=== PATIENT | male | born 1975 | race Caucasian/White ===

== ENCOUNTER 2018-07-31 11:38 | Emergency (ER) | payer OTHER ==
[~2018-07-31] VITALS: Ht 167.6 cm; Wt 79.3 kg
[2018-07-31] MEDS ORDERED: MELA3TAB49 PO (12:34)
[2018-07-31] MEDS ORDERED: RIBO400T PO (12:34)
[2018-07-31] MEDS ORDERED: HYDR-643 PO (12:34)
[2018-07-31] MEDS ORDERED: PRAZ2CAP PO (12:34)
[2018-07-31] MEDS ORDERED: BUPR-321 PO (12:34)
[2018-07-31] MEDS ORDERED: SERT-138 PO (12:34)
[2018-07-31] MEDS ORDERED: TIZA4CAP PO (12:34)
[2018-07-31] MEDS ORDERED: ROPI2TAB PO (12:34)
[2018-07-31] MEDS ORDERED: TETRACAINE 0.5% OPHTH SOLN 4ML OS ONE (13:30)
[2018-07-31] MEDS ORDERED: FLUORESCEIN OPHTH 1 MG STRIP OS ONE (13:30)
[2018-07-31] MEDS ORDERED: LUBR0.5D OP (14:27)
[2018-07-31] MEDS ORDERED: MOXI0.5S OS (14:27)
[2018-07-31 14:39] VITALS: BP 156/71
== END 2018-07-31 14:40 | disposition home or self-care (01) ==
LOC: M ED 11:38
DX: T15.02XA Foreign body in cornea, left eye, initial encounter (principal); X58.XXXA Exposure to other specified factors, initial encounter; Y92.099 Unspecified place in other non-institutional residence as the place of occurrence of the external cause; Y93.89 Activity, other specified; Y99.9 Unspecified external cause status; Z79.899 Other long term (current) drug therapy; Z88.2 Allergy status to sulfonamides

== ENCOUNTER → 2019-07-22 | Outpatient (REF) | payer OTHER ==
[~2019-07-22] MED LIST: BUPR-321 PO; HYDR-643 PO; LUBR0.5D OP; MELA3TAB49 PO; MOXI0.5S OS; PRAZ2CAP PO; RIBO400T PO; ROPI2TAB3 PO; SERT-138 PO; TIZA4CAP PO
[2019-07-22 15:24] LABS: INFLUENZA A AMPLIFICATION POSITIVE (NEGATIVE); INFLUENZA B AMPLIFICATION NEGATIVE (NEGATIVE)
== END ==
LOC: M LAB REF 14:23
PROVIDERS: ATTEND Physician Assistant Medical
DX: J11.1 Influenza due to unidentified influenza virus with other respiratory manifestations (principal)

== ENCOUNTER → 2019-08-04 | Outpatient (CLI) | payer OTHER | LOC: M LABSMTC 11:08 | PROVIDERS: ATTEND Family Medicine | DX: Z20.828 Contact with and (suspected) exposure to other viral communicable diseases (principal) ==

== ENCOUNTER 2020-11-17 12:41 | Emergency (ER) | payer OTHER ==
[~2020-11-17] VITALS: Ht 167.6 cm; Wt 81.8 kg
[2020-11-17 12:41] VITALS: BP 139/87
[~2020-11-17 12:41] MED LIST changes: -BUPR-321 PO; +BUPR100T10 PO
[2020-11-17] MEDS ORDERED: TETRACAINE 0.5% OPHTH SOLN 4ML OU ONE (14:25)
[2020-11-17] MEDS ORDERED: FLUORESCEIN OPHTH 1 MG STRIP OU ONE (14:25)
[2020-11-17] MEDS ORDERED: PROP10TA56 PO ×2 (15:25)
[2020-11-17] MEDS ORDERED: ERYT5OIN25 OP (17:24)
== END 2020-11-17 17:33 | disposition home or self-care (01) ==
LOC: M ED 12:41
DX: S05.01XA Injury of conjunctiva and corneal abrasion without foreign body, right eye, initial encounter (principal); S05.02XA Injury of conjunctiva and corneal abrasion without foreign body, left eye, initial encounter; X58.XXXA Exposure to other specified factors, initial encounter; Y92.89 Other specified places as the place of occurrence of the external cause; H11.423 Conjunctival edema, bilateral; I10 Essential (primary) hypertension; F33.9 Major depressive disorder, recurrent, unspecified; F41.9 Anxiety disorder, unspecified; G25.81 Restless legs syndrome; Z79.899 Other long term (current) drug therapy; Z88.1 Allergy status to other antibiotic agents; Z88.2 Allergy status to sulfonamides

== ENCOUNTER → 2021-03-23 | Outpatient (CLI) | payer OTHER ==
[~2021-03-23] MED LIST changes: +ERYT5OIN25 OP; +PROP10TA56 PO
--- NOTE | 2021-03-23 09:44 | REPVR ---
PROCEDURE INFORMATION: Exam: MR Cervical Spine Without Contrast Exam date and time: 03/23/2021 8:11 AM Age: 45 years old Clinical indication: Neck pain; Additional info: Cervicalgia HTN mirgraine HTN lbp TECHNIQUE: Imaging protocol: Multiplanar magnetic resonance images of the cervical spine without contrast. COMPARISON: No relevant prior studies available. FINDINGS: Limitations: There is motion artifact partially degrading examination. Vertebrae: Straightening of lordosis may be positional or related to muscular spasm. Correlate clinically. There is minimal retrolisthesis C5 on C6. Vertebral body heights are maintained. No acute fracture. No marrow edema or abnormal marrow signal. Spinal cord: Spinal cord is normal in caliber and shows normal signal. No evidence of spinal cord compression. Discs/Spinal canal/Neural foramina: There are minimal cervical disc osteophyte complexes from C3-C4 through C6-C7. There are uncinate and facet osteophytes at C5-C6 and C6-C7. There is no spinal stenosis or cord impingement. There is likely neural foraminal narrowing at C5-C6 and C6-C7, difficult to definitively quantitate due to motion but not severe. C4-C5 shows a tiny central protrusion and annular fissure. Vasculature: Expected flow voids in the vertebral arteries. Soft tissues: Unremarkable IMPRESSION: Motion limited examination. No spinal stenosis or cord impingement prox. Probable neural foraminal narrowing at C5-C6 and C6-C7. Electronically signed by: Sofya Guo On 03/23/2021 09:44:21 AM
--- NOTE | 2021-03-23 09:48 | REPVR ---
PROCEDURE INFORMATION: Exam: MR Head Without Contrast Exam date and time: 03/23/2021 8:11 AM Age: 45 years old Clinical indication: Pain; Headache; Cluster; Additional info: Cervicalgia HTN migraine HTN lbp TECHNIQUE: Imaging protocol: MR of the head without contrast. COMPARISON: No relevant prior studies available. FINDINGS: Brain: There is scattered T2 and FLAIR hyperintense small areas in cerebral white matter and left basal ganglia and small areas in posterior aspect bilateral yung. Differential diagnosis includes microvascular disease, cerebral autosomal dominant arteriopathy with subcortical infarcts (CADASIL), vasculitis, [employer] lupus, sequela of migraine headaches, associated with chronic hypertension, associated with hypercoagulable states, demyelination (not characteristic distribution), Lyme disease, or nonspecific gliosis. Diffusion images are normal. No evidence of acute infarction. No evidence of acute intracranial hemorrhage. No extra-axial fluid collections. Ventricles and cerebrospinal fluid spaces are normal in size and configuration for the patient's age. There is no evidence of mass-effect or midline shift. Flow voids of the [place] and major cerebral vascular structures appear intact. Craniocervical junction appears unremarkable, with normal position of cerebellar tonsils and no evidence of Chiari I malformation. Cerebral ventricles: Normal. No ventriculomegaly. Bones/joints: Unremarkable as visualized. Paranasal sinuses: Normal as visualized. No acute sinusitis. Mastoid air cells: No significant mastoid effusion. Orbital cavity: Unremarkable. Soft tissues: Unremarkable as visualized. IMPRESSION: 1. Nonspecific predominantly white matter changes as described. 2. No acute infarct or hemorrhage. No evidence of mass producing lesion. Electronically signed by: Sofya Guo On 03/23/2021 09:48:14 AM
--- NOTE | 2021-03-23 09:53 | REPVR ---
PROCEDURE INFORMATION: Exam: MR Lumbar Spine Without Contrast Exam date and time: 03/23/2021 8:40 AM Age: 45 years old Clinical indication: Low back pain; Additional info: Cervicalgia HTN mirgraine HTN lbp TECHNIQUE: Imaging protocol: Multiplanar magnetic resonance images of the lumbar spine without intravenous contrast. COMPARISON: No relevant prior studies available. FINDINGS: Limitations: There is motion artifact partially degrading examination. Study is felt to be diagnostic however. Vertebrae: No scoliosis. Partial straightening of lordosis. Vertebral body heights normal. There is disc desiccation and [id number] posterior disc height loss at L5-S1. Hemangiomas at L2 and S2. Vertebral body marrow signal is otherwise unremarkable. Spinal cord: Conus terminates at T12-L1 and appears normal in signal intensity without intrinsic or extrinsic lesion. Small filum lipoma at L2-L3 level. L1-L2: There is no significant posterior disc bulge or protrusion. There is no significant spinal stenosis or neural foraminal narrowing. L2-L3: There is no significant posterior disc bulge or protrusion. There is no significant spinal stenosis or neural foraminal narrowing. L3-L4: There is no significant posterior disc bulge or protrusion. There is no significant spinal stenosis or neural foraminal narrowing. L4-L5: There is mild disc bulge without protrusion. There is no significant spinal stenosis or neural foraminal narrowing. L5-S1: There is mild generalized disc bulge. There is right paracentral approximately 3 mm protrusion. There is no impingement or displacement S1 nerve root. There is no significant spinal stenosis. There is mild bilateral neural foraminal narrowing, without nerve root impingement or displacement. Soft tissues: Unremarkable. Kidneys and ureters: Note is made of retroaortic left renal vein. No aortic aneurysm. IMPRESSION: Mild degenerative changes without evidence of nerve root impingement. Electronically signed by: Sofya Guo On 03/23/2021 09:52:59 AM
== END ==
LOC: M RAD 07:00
PROVIDERS: ATTEND Family Medicine
DX: M54.2 Cervicalgia (principal); I10 Essential (primary) hypertension; M54.50 Low back pain, unspecified; G43.909 Migraine, unspecified, not intractable, without status migrainosus

== ENCOUNTER 2021-06-26 16:15 | Emergency (ER) | payer OTHER ==
[~2021-06-26] VITALS: Ht 167.6 cm; Wt 84.8 kg
[~2021-06-26 16:15] MED LIST changes: +BUPR-364 PO; -BUPR100T10 PO
[2021-06-26] MEDS ORDERED: NS 1,000 ML IV ONE (17:35)
[2021-06-26 17:53] LABS: BASO # 0.1 10^3/uL (0.0-0.2); BASO % 0.9 % (0.0-1.0); EOS # 0.3 10^3/uL (0.0-0.5); EOS % 3.1 % (0.0-3.0); HEMATOCRIT 49.9 % (42.0-52.0); HEMOGLOBIN 16.7 g/dl (13.5-17.5); LYMPH # 2.1 10^3/uL (1.5-5.0); LYMPH % 21.1 % (24.0-44.0); MEAN CORPUSCULAR HEMOGLOBIN 27.2 pg (27.0-33.0); MEAN CORPUSCULAR HGB CONC 33.5 g/dl (32.0-36.5); MEAN CORPUSCULAR VOLUME 81.3 fl (80.0-96.0); MONO # 1.1 10^3/uL (0.0-0.8); MONO % 11.6 % (2.0-8.0); NEUTROPHILS # 6.2 10^3/uL (1.5-8.5); PLATELET COUNT, AUTOMATED 324 10^3/uL (150-450); RED BLOOD COUNT 6.14 10^6/uL (4.30-6.10); WHITE BLOOD COUNT 9.8 10^3/uL (4.0-10.0)
[2021-06-26 18:17] LABS: ALT/SGPT 45 U/L (12-78); BILIRUBIN,DIRECT 0.2 MG/DL (0.0-0.2); BILIRUBIN,TOTAL 0.6 MG/DL (0.2-1.0); BLOOD UREA NITROGEN 18 MG/DL (7-18); CALCIUM LEVEL 9.9 MG/DL (8.5-10.1); CARBON DIOXIDE LEVEL 28 MEQ/L (21-32); CHLORIDE LEVEL 103 MEQ/L (98-107); CREATININE FOR GFR 0.97 MG/DL (0.70-1.30); GLOMERULAR FILTRATION RATE > 60.0 (>60); GLUCOSE, FASTING 92 MG/DL (70-100); LIPASE 155 U/L (73-393); POTASSIUM SERUM 4.5 MEQ/L (3.5-5.1); SODIUM LEVEL 138 MEQ/L (136-145); TOTAL PROTEIN 8.2 GM/DL (6.4-8.2)
[2021-06-26] MEDS ORDERED: ISOVUE-370 76% 100ML VIAL As Ordered ONE (18:20)
[2021-06-26 19:30] VITALS: BP 142/95
== END 2021-06-26 21:04 | disposition home or self-care (01) ==
LOC: M ED 16:15
DX: R19.7 Diarrhea, unspecified (principal); K76.0 Fatty (change of) liver, not elsewhere classified; Z88.2 Allergy status to sulfonamides; Z79.899 Other long term (current) drug therapy
CPT/HCPCS: 74177; 80048; 80076; 81001; 83690; 85025; 87505; 96360; 96361; 99284; Q9967

== ENCOUNTER 2021-06-30 07:24 | Emergency (ER) | payer OTHER ==
[~2021-06-30] VITALS: Ht 167.6 cm; Wt 84.2 kg
[2021-06-30] MEDS ORDERED: VANCOMYCIN ORAL SOL 250MG/5ML ORAL SYRINGE PO STA (08:20)
[2021-06-30] MEDS ORDERED: PROMETHAZINE 25MG/ML 1ML VIAL IV ONE (08:20)
[2021-06-30] MEDS ORDERED: NS 1,000 ML IV ONE (08:25)
[2021-06-30 09:33] LABS: BASO # 0.1 10^3/uL (0.0-0.2); BASO % 0.8 % (0.0-1.0); EOS # 0.3 10^3/uL (0.0-0.5); EOS % 2.2 % (0.0-3.0); HEMOGLOBIN 15.7 g/dl (13.5-17.5); LYMPH # 1.6 10^3/uL (1.5-5.0); LYMPH % 13.9 % (24.0-44.0); MEAN CORPUSCULAR HEMOGLOBIN 26.8 pg (27.0-33.0); MEAN CORPUSCULAR HGB CONC 33.4 g/dl (32.0-36.5); MEAN CORPUSCULAR VOLUME 80.2 fl (80.0-96.0); MONO # 1.1 10^3/uL (0.0-0.8); MONO % 9.7 % (2.0-8.0); NEUTROPHILS # 8.4 10^3/uL (1.5-8.5); PLATELET COUNT, AUTOMATED 291 10^3/uL (150-450); RED BLOOD COUNT 5.86 10^6/uL (4.30-6.10); WHITE BLOOD COUNT 11.5 10^3/uL (4.0-10.0)
[2021-06-30 10:00] LABS: BLOOD UREA NITROGEN 13 MG/DL (7-18); CALCIUM LEVEL 9.5 MG/DL (8.5-10.1); CARBON DIOXIDE LEVEL 25 MEQ/L (21-32); CHLORIDE LEVEL 106 MEQ/L (98-107); CREATININE FOR GFR 0.96 MG/DL (0.70-1.30); GLOMERULAR FILTRATION RATE > 60.0 (>60); GLUCOSE, FASTING 101 MG/DL (70-100); POTASSIUM SERUM 4.5 MEQ/L (3.5-5.1); SODIUM LEVEL 138 MEQ/L (136-145)
[2021-06-30] MEDS ORDERED: PROM25TA12 PO (10:23)
[2021-06-30] MEDS ORDERED: VANC125C3 PO (10:23)
[2021-06-30 10:42] VITALS: BP 125/75
== END 2021-06-30 10:53 | disposition home or self-care (01) ==
LOC: M ED 07:24
DX: A04.72 Enterocolitis due to Clostridium difficile, not specified as recurrent (principal); R19.7 Diarrhea, unspecified; Z88.2 Allergy status to sulfonamides; Z79.899 Other long term (current) drug therapy
CPT/HCPCS: 80048; 85025; 96361; 96374; 99284; J2550

== ENCOUNTER 2021-07-07 10:37 | Emergency (ER) | payer OTHER ==
[~2021-07-07] VITALS: Ht 167.6 cm; Wt 81.2 kg
[~2021-07-07 10:37] MED LIST changes: +PROM25TA12 PO; +VANC125C3 PO
[2021-07-07 10:38] VITALS: BP 149/90
== END 2021-07-07 11:45 | disposition left against medical advice (07) ==
LOC: M ED 10:37
DX: Z53.21 Procedure and treatment not carried out due to patient leaving prior to being seen by health care provider (principal)

== ENCOUNTER → 2021-07-30 | Outpatient (CLI) | payer OTHER | LOC: M PLAIMG 10:14 | PROVIDERS: ATTEND Family Medicine | DX: R51.9 Headache, unspecified (principal); M54.2 Cervicalgia; M54.50 Low back pain, unspecified ==

== ENCOUNTER 2022-01-07 16:07 | Emergency (ER) | payer OTHER ==
[~2022-01-07] VITALS: Ht 167.6 cm; Wt 86.1 kg
[2022-01-07 19:20] LABS: BASO # 0.1 10^3/uL (0.0-0.2); BASO % 1.3 % (0.0-1.0); EOS # 0.5 10^3/uL (0.0-0.5); EOS % 4.7 % (0.0-3.0); HEMATOCRIT 47.5 % (42.0-52.0); HEMOGLOBIN 15.9 g/dl (13.5-17.5); LYMPH # 2.8 10^3/uL (1.5-5.0); LYMPH % 25.3 % (24.0-44.0); MEAN CORPUSCULAR HEMOGLOBIN 27.3 pg (27.0-33.0); MEAN CORPUSCULAR HGB CONC 33.5 g/dl (32.0-36.5); MEAN CORPUSCULAR VOLUME 81.5 fl (80.0-96.0); MONO # 1.2 10^3/uL (0.0-0.8); MONO % 10.7 % (2.0-8.0); NEUTROPHILS # 6.3 10^3/uL (1.5-8.5); NEUTROPHILS % 57.3 % (36.0-66.0); PLATELET COUNT, AUTOMATED 315 10^3/uL (150-450); RED BLOOD COUNT 5.83 10^6/uL (4.30-6.10)
[2022-01-07 19:58] LABS: ALT/SGPT 52 U/L (12-78); BILIRUBIN,DIRECT 0.3 MG/DL (0.0-0.2); BILIRUBIN,TOTAL 0.5 MG/DL (0.2-1.0); BLOOD UREA NITROGEN 10 MG/DL (7-18); CALCIUM LEVEL 9.9 MG/DL (8.5-10.1); CARBON DIOXIDE LEVEL 27 MEQ/L (21-32); CHLORIDE LEVEL 106 MEQ/L (98-107); CREATININE FOR GFR 0.82 MG/DL (0.70-1.30); GLOMERULAR FILTRATION RATE > 60.0 (>60); GLUCOSE, FASTING 80 MG/DL (70-100); LIPASE 142 U/L (73-393); POTASSIUM SERUM 4.1 MEQ/L (3.5-5.1); SODIUM LEVEL 138 MEQ/L (136-145); TOTAL PROTEIN 8.3 GM/DL (6.4-8.2)
[2022-01-07 20:07] VITALS: BP 160/110
[2022-01-07] MEDS ORDERED: FIDAXOMICIN 200 MG TAB (DIFICID) PO SCH (21:00)
[2022-01-07] MEDS ORDERED: DIFI200T PO (21:48)
== END 2022-01-07 22:14 | disposition home or self-care (01) ==
LOC: M ED 16:07
DX: A04.71 Enterocolitis due to Clostridium difficile, recurrent (principal); Z88.1 Allergy status to other antibiotic agents; Z88.2 Allergy status to sulfonamides

== ENCOUNTER → 2022-01-21 | Outpatient (REF) | payer OTHER ==
[~2022-01-21] MED LIST changes: +DIFI200T PO
[2022-01-22 16:41] LABS: CLOSTRIDIUM DIFFICILE PCR NEGATIVE (NEGATIVE)
== END ==
LOC: M LAB REF 14:54
PROVIDERS: ATTEND Internal Medicine
DX: A04.72 Enterocolitis due to Clostridium difficile, not specified as recurrent (principal)

== ENCOUNTER 2022-07-20 15:30 | Outpatient (CLI) | payer OTHER ==
[~2022-07-20] VITALS: Ht 167.6 cm; Wt 85.0 kg
[2022-07-20 15:47] VITALS: BP 140/100
[2022-07-20] MEDS ORDERED: BEZLOTOXUMAB 850 MG in NS 100 ML IV ONE (16:00)
[2022-07-20 16:50] VITALS: BP 153/92
== END 2022-07-20 16:50 | disposition home or self-care (01) ==
LOC: M INFU 15:30
PROVIDERS: ATTEND Internal Medicine Gastroenterology
DX: A04.71 Enterocolitis due to Clostridium difficile, recurrent (principal); Z88.2 Allergy status to sulfonamides
CPT/HCPCS: 96365; J0565

== ENCOUNTER → 2022-08-18 | Outpatient (REF) | payer OTHER | LOC: M LAB REF 11:42 | PROVIDERS: ATTEND Internal Medicine Gastroenterology | DX: R19.7 Diarrhea, unspecified (principal) ==

== ENCOUNTER 2022-09-22 12:05 | Day surgery (SDC) | payer OTHER ==
[~2022-09-22] VITALS: Ht 167.6 cm; Wt 80.7 kg
[~2022-09-22 12:05] MED LIST changes: +AMIT10TA7 PO; +FECAL MICROBIOTA TRANSPLANT PREPARATION 35ML BAG XX ONE; +NS 1,000 ML IV ONE; +SERT200C PO
[2022-09-22 15:13] VITALS: BP 130/79
== END 2022-09-22 15:16 | disposition home or self-care (01) ==
LOC: M OPP 12:05
PROVIDERS: ATTEND Internal Medicine Gastroenterology
DX: K64.0 First degree hemorrhoids (principal); K51.00 Ulcerative (chronic) pancolitis without complications; A04.71 Enterocolitis due to Clostridium difficile, recurrent; K52.9 Noninfective gastroenteritis and colitis, unspecified; G47.33 Obstructive sleep apnea (adult) (pediatric); Z87.891 Personal history of nicotine dependence; Z79.01 Long term (current) use of anticoagulants; Z79.1 Long term (current) use of non-steroidal anti-inflammatories (NSAID); Z79.899 Other long term (current) drug therapy; Z88.2 Allergy status to sulfonamides

== ENCOUNTER → 2022-09-27 | Outpatient (REF) | payer OTHER ==
[~2022-09-27] MED LIST changes: -FECAL MICROBIOTA TRANSPLANT PREPARATION 35ML BAG XX ONE; -NS 1,000 ML IV ONE
== END ==
LOC: M LAB REF 17:11
PROVIDERS: ATTEND Internal Medicine Gastroenterology
DX: R19.7 Diarrhea, unspecified (principal)

== ENCOUNTER → 2022-10-13 | Outpatient (REF) | payer OTHER | LOC: M LAB REF 11:43 | PROVIDERS: ATTEND Internal Medicine Gastroenterology | DX: R19.7 Diarrhea, unspecified (principal) ==

== ENCOUNTER 2023-07-16 12:39 | Inpatient (IN) | payer OTHER ==
[~2023-07-16] VITALS: Ht 167.6 cm; Wt 79.0 kg
[~2023-07-16 12:39] MED LIST changes: -ROPI2TAB3 PO; +ROPI2TAB46 PO
[2023-07-16] MEDS ORDERED: MESA1.2T PO (13:19)
[2023-07-16] MEDS: NS 1,000 ML IV ONE (16:17)
[2023-07-16 16:23] LABS: AMORPHOUS SEDIMENT LARGE (NEGATIVE); APPEARANCE, URINE TURBID (CLEAR); BACTERIA, URINE AUTO NEGATIVE (NEGATIVE); BILIRUBIN, URINE AUTO NEGATIVE (NEGATIVE); BLOOD, URINE BLOOD NEGATIVE (NEGATIVE); COLOR, URINE AMBER (YELLOW); GLUCOSE, URINE (UA) AUTO NEGATIVE (NEGATIVE); KETONE, URINE AUTO 1+ mg/dL (NEGATIVE); LEUKOCYTE ESTERASE, URINE AUTO NEGATIVE (NEGATIVE); MUCUS, URINE LARGE (NEGATIVE); NITRITE, URINE AUTO NEGATIVE (NEGATIVE); PROTEIN, URINE AUTO 2+ mg/dL (NEGATIVE); RBC, URINE AUTO 0 /HPF (0-3); SQUAMOUS EPITHELIAL CELL UR AU 0 /HPF (0-6); UROBILINOGEN, URINE AUTO 0.2 mg/dL (0.0-2.0); WBC, URINE AUTO 72 /HPF (0-3)
[2023-07-16 16:26] LABS: BASO # 0.1 10^3/uL (0.0-0.2); BASO % 0.8 % (0.0-1.0); EOS # 0.2 10^3/uL (0.0-0.5); EOS % 1.3 % (0.0-3.0); HEMATOCRIT 46.9 % (42.0-52.0); HEMOGLOBIN 15.9 g/dl (13.5-17.5); LYMPH # 1.6 10^3/uL (1.5-5.0); LYMPH % 10.2 % (24.0-44.0); MEAN CORPUSCULAR HEMOGLOBIN 26.5 pg (27.0-33.0); MEAN CORPUSCULAR HGB CONC 33.9 g/dl (32.0-36.5); MONO # 1.3 10^3/uL (0.0-0.8); MONO % 8.5 % (2.0-8.0); NEUTROPHILS # 12.1 10^3/uL (1.5-8.5); NEUTROPHILS % 78.3 % (36.0-66.0); PLATELET COUNT, AUTOMATED 429 10^3/uL (150-450); RED BLOOD COUNT 6.01 10^6/uL (4.30-6.10); WHITE BLOOD COUNT 15.4 10^3/uL (4.0-10.0)
[2023-07-16] MEDS: GASTROGRAFIN SOLUTION 30ML PO SCH (16:26)
[2023-07-16 16:48] LABS: LIPASE 23 U/L (12-53)
[2023-07-16 16:50] LABS: ALBUMIN 3.8 G/DL (3.2-5.2); ALKALINE PHOSPHATASE 144 U/L (46-116); ALT/SGPT 23 U/L (7.0-40); AST/SGOT 16 U/L (<34); BILIRUBIN,DIRECT 0.4 MG/DL (<0.4); BILIRUBIN,TOTAL 0.5 MG/DL (0.3-1.2); BLOOD UREA NITROGEN 12 MG/DL (9-23); CALCIUM LEVEL 9.5 MG/DL (8.5-10.1); CARBON DIOXIDE LEVEL 23 MMOL/L (20-31); CHLORIDE LEVEL 106 MMOL/L (98-107); CREATININE FOR GFR 0.92 MG/DL (0.70-1.30); GLOMERULAR FILTRATION RATE > 60.0 (>60); GLUCOSE, FASTING 113 MG/DL (60-100); MAGNESIUM LEVEL 2.1 MG/DL (1.8-2.4); POTASSIUM SERUM 4.3 MMOL/L (3.5-5.1); SODIUM LEVEL 138 MMOL/L (136-145); TOTAL PROTEIN 7.8 G/DL (5.7-8.2)
[2023-07-16 17:20] LABS: RSV AMPLIFICATION NEGATIVE (NEGATIVE)
[2023-07-16] MEDS ORDERED: ISOVUE-370 76% 100ML VIAL As Ordered ONE (17:41)
[2023-07-16] MEDS: NS 1,000 ML IV SCH (20:10)
[2023-07-16] MEDS ORDERED: HOME MED LIST COMPLETE! XX SCH (21:00)
[2023-07-16] MEDS: VANCOMYCIN 125MG CAPSULE PO ONE (21:07)
[2023-07-16] MEDS: ACETAMINOPHEN *IV* 1,000 MG in IV 1 EA IV PRN (22:00)
[2023-07-16] MEDS: FIDAXOMICIN 200 MG TAB (DIFICID) PO SCH (23:01)
[2023-07-17] MEDS: methylPREDNISolone 40MG 1ML VIAL IV ONE (04:15)
[2023-07-17] MEDS: LR 1,000 ML IV SCH (08:08)
[2023-07-17] MEDS ORDERED: tiZANidine 4 MG TAB PO PRN (10:50)
[2023-07-17 10:54] LABS: BASO # 0.1 10^3/uL (0.0-0.2); BASO % 0.8 % (0.0-1.0); EOS % 0.1 % (0.0-3.0); HEMATOCRIT 47.9 % (42.0-52.0); HEMOGLOBIN 15.3 g/dl (13.5-17.5); LYMPH # 1.2 10^3/uL (1.5-5.0); LYMPH % 9.3 % (24.0-44.0); MEAN CORPUSCULAR HEMOGLOBIN 25.5 pg (27.0-33.0); MEAN CORPUSCULAR HGB CONC 31.9 g/dl (32.0-36.5); MEAN CORPUSCULAR VOLUME 79.8 fl (80.0-96.0); MONO # 0.2 10^3/uL (0.0-0.8); MONO % 1.8 % (2.0-8.0); NEUTROPHILS # 10.7 10^3/uL (1.5-8.5); NEUTROPHILS % 86.2 % (36.0-66.0); PLATELET COUNT, AUTOMATED 441 10^3/uL (150-450); WHITE BLOOD COUNT 12.4 10^3/uL (4.0-10.0)
[2023-07-17 11:00] LABS: BLOOD UREA NITROGEN 12 MG/DL (9-23); CALCIUM LEVEL 9.1 MG/DL (8.5-10.1); CARBON DIOXIDE LEVEL 24 MMOL/L (20-31); CHLORIDE LEVEL 106 MMOL/L (98-107); CREATININE FOR GFR 0.76 MG/DL (0.70-1.30); GLOMERULAR FILTRATION RATE > 60.0 (>60); GLUCOSE, FASTING 112 MG/DL (60-100); POTASSIUM SERUM 5.1 MMOL/L (3.5-5.1); SODIUM LEVEL 138 MMOL/L (136-145)
[2023-07-17 11:07] LABS: PROCALCITONIN <0.04 ng/ml
[2023-07-17 11:14] LABS: ERYTHROCYTE SEDIMENTATION RATE 59 mm/hr (0-15)
[2023-07-17] MEDS: predniSONE 50 MG TAB PO SCH (11:46)
[2023-07-17 15:00] VITALS: BP 142/96; TEMP 98.1; O2SAT 96
[2023-07-17] MEDS: MESALAMINE 400 MG CAPSULE DELAYED RELEASE (DELZICOL) PO SCH (17:38)
[2023-07-17] MEDS: PROPRANOLOL 10 MG TAB PO SCH (17:39)
[2023-07-17 20:34] VITALS: BP 144/91; TEMP 98.2; O2SAT 97
[2023-07-17] MEDS: HEPARIN SOD (PORCINE) 5000UNITS/ML 1ML VIAL/SYRINGE SQ SCH (21:00)
[2023-07-17] MEDS: SERTRALINE 100 MG TAB PO SCH (21:15)
[2023-07-17] MEDS: PRAZOSIN 1 MG CAP PO SCH (21:16)
[2023-07-17] MEDS: AMITRIPTYLINE 10MG TABLET PO SCH (21:17)
[2023-07-17] MEDS: rOPINIRole 2MG TAB PO SCH (21:17)
[2023-07-18 06:03] VITALS: BP 111/66; TEMP 98.1; O2SAT 96
[2023-07-18 06:56] LABS: BASO # 0.1 10^3/uL (0.0-0.2); BASO % 0.8 % (0.0-1.0); EOS # 0.1 10^3/uL (0.0-0.5); EOS % 1.1 % (0.0-3.0); HEMATOCRIT 42.2 % (42.0-52.0); HEMOGLOBIN 14.2 g/dl (13.5-17.5); LYMPH # 2.9 10^3/uL (1.5-5.0); LYMPH % 21.7 % (24.0-44.0); MEAN CORPUSCULAR HEMOGLOBIN 26.1 pg (27.0-33.0); MEAN CORPUSCULAR HGB CONC 33.6 g/dl (32.0-36.5); MEAN CORPUSCULAR VOLUME 77.6 fl (80.0-96.0); MONO % 14.8 % (2.0-8.0); NEUTROPHILS % 60.3 % (36.0-66.0); PLATELET COUNT, AUTOMATED 415 10^3/uL (150-450); RED BLOOD COUNT 5.44 10^6/uL (4.30-6.10); WHITE BLOOD COUNT 13.2 10^3/uL (4.0-10.0)
[2023-07-18 07:23] LABS: BLOOD UREA NITROGEN 16 MG/DL (9-23); CALCIUM LEVEL 9.1 MG/DL (8.5-10.1); CARBON DIOXIDE LEVEL 25 MMOL/L (20-31); CHLORIDE LEVEL 107 MMOL/L (98-107); GLOMERULAR FILTRATION RATE > 60.0 (>60); GLUCOSE, FASTING 111 MG/DL (60-100); POTASSIUM SERUM 4.4 MMOL/L (3.5-5.1); SODIUM LEVEL 138 MMOL/L (136-145)
[2023-07-18] MEDS ORDERED: LIALDA PO SCH (09:00)
[2023-07-18 14:00] VITALS: BP 115/71; TEMP 97.9; O2SAT 94
[2023-07-18 20:06] VITALS: BP 118/64; TEMP 98.1; O2SAT 98
[2023-07-19 05:53] VITALS: BP 134/88; TEMP 97.7; O2SAT 96
[2023-07-19 07:47] LABS: BASO # 0.2 10^3/uL (0.0-0.2); BASO % 1.7 % (0.0-1.0); EOS # 0.2 10^3/uL (0.0-0.5); EOS % 1.7 % (0.0-3.0); HEMATOCRIT 45.8 % (42.0-52.0); HEMOGLOBIN 14.8 g/dl (13.5-17.5); LYMPH # 3.6 10^3/uL (1.5-5.0); LYMPH % 30.9 % (24.0-44.0); MEAN CORPUSCULAR HEMOGLOBIN 25.9 pg (27.0-33.0); MEAN CORPUSCULAR HGB CONC 32.3 g/dl (32.0-36.5); MEAN CORPUSCULAR VOLUME 80.1 fl (80.0-96.0); MONO # 1.6 10^3/uL (0.0-0.8); MONO % 13.9 % (2.0-8.0); NEUTROPHILS # 5.7 10^3/uL (1.5-8.5); PLATELET COUNT, AUTOMATED 421 10^3/uL (150-450); RED BLOOD COUNT 5.72 10^6/uL (4.30-6.10); WHITE BLOOD COUNT 11.6 10^3/uL (4.0-10.0)
[2023-07-19 08:12] LABS: BLOOD UREA NITROGEN 16 MG/DL (9-23); CALCIUM LEVEL 8.9 MG/DL (8.5-10.1); CARBON DIOXIDE LEVEL 26 MMOL/L (20-31); CHLORIDE LEVEL 107 MMOL/L (98-107); CREATININE FOR GFR 0.74 MG/DL (0.70-1.30); GLOMERULAR FILTRATION RATE > 60.0 (>60); GLUCOSE, FASTING 100 MG/DL (60-100); POTASSIUM SERUM 4.4 MMOL/L (3.5-5.1); SODIUM LEVEL 140 MMOL/L (136-145)
[2023-07-19] MEDS: LACTOBACILLUS ACIDOPHILUS CAP (BACID) PO SCH (09:52)
[2023-07-19 09:55] VITALS: BP 128/91
[2023-07-19] MEDS ORDERED: PRED10TA2 PO (11:35)
[2023-07-19] MEDS ORDERED: PROB250C PO (11:35)
== END 2023-07-19 12:30 | disposition home or self-care (01) | DRG 387 ==
LOC: M ED 12:39 → M ED INP 21:12 → M MS5PR 07-17 14:45
PROVIDERS: ADMIT Internal Medicine; ATTEND Internal Medicine
DX: K51.90 Ulcerative colitis, unspecified, without complications (principal); L13.9 Bullous disorder, unspecified; A04.71 Enterocolitis due to Clostridium difficile, recurrent; G25.81 Restless legs syndrome; F43.10 Post-traumatic stress disorder, unspecified; F32.A Depression, unspecified; F41.9 Anxiety disorder, unspecified; G89.29 Other chronic pain; Z79.899 Other long term (current) drug therapy; M54.9 Dorsalgia, unspecified; Z88.2 Allergy status to sulfonamides

== ENCOUNTER 2023-07-24 20:49 | Emergency (ER) | payer OTHER ==
[~2023-07-24] VITALS: Ht 167.6 cm; Wt 79.9 kg
[~2023-07-24 20:49] MED LIST changes: +MESA1.2T PO; +PRED10TA2 PO; +PROB250C PO
[2023-07-24] MEDS: TETRACAINE 0.5% OPHTH SOLN 4ML OU ONE (23:54)
[2023-07-24] MEDS: FLUORESCEIN OPHTH 1MG STRIP OU ONE (23:54)
[2023-07-25] MEDS ORDERED: EYEOIN OP (00:17)
[2023-07-25] MEDS: NORCO, ANEXSIA 5/325MG TABLET (HYDROcodone/ACETAMINOPHEN) PO ONE (00:22)
[2023-07-25] MEDS: NORCO 5/325MG TABLET (HOME DOSE PACK) PO ONE (00:23)
[2023-07-25] MEDS: LACRILUBE (AKWA TEARS) OPHTH OINT 3.5GM OU ONE (00:28)
[2023-07-25 00:44] VITALS: BP 131/72; TEMP 98.7; O2SAT 99
== END 2023-07-25 01:10 | disposition home or self-care (01) ==
LOC: M ED 20:49
DX: H16.133 Photokeratitis, bilateral (principal); G43.909 Migraine, unspecified, not intractable, without status migrainosus; G25.81 Restless legs syndrome; Z87.891 Personal history of nicotine dependence; Z86.19 Personal history of other infectious and parasitic diseases; Z88.2 Allergy status to sulfonamides; Z79.52 Long term (current) use of systemic steroids; Z79.82 Long term (current) use of aspirin; Z79.891 Long term (current) use of opiate analgesic; Z79.899 Other long term (current) drug therapy

== ENCOUNTER → 2024-03-14 | Outpatient (REF) | payer OTHER ==
[~2024-03-14] MED LIST changes: +EYEOIN OP
[2024-03-14 12:09] LABS: CLOSTRIDIUM DIFFICILE PCR POSITIVE (NEGATIVE)
== END ==
LOC: M LAB REF 10:22
PROVIDERS: ATTEND Internal Medicine Gastroenterology
DX: K51.913 Ulcerative colitis, unspecified with fistula (principal)

== ENCOUNTER → 2024-07-10 | Outpatient (CLI) | payer OTHER ==
[~2024-07-10] MED LIST changes: +CARB15DR64 OP; -LUBR0.5D OP; +VANC125C13 PO; -VANC125C3 PO
== END ==
LOC: M WHC 12:38
PROVIDERS: ATTEND Physician Assistant
DX: M85.89 Other specified disorders of bone density and structure, multiple sites (principal); Z79.52 Long term (current) use of systemic steroids

== ENCOUNTER → 2024-09-18 | Outpatient (CLI) | payer OTHER | LOC: M PLAIMG 11:22 | PROVIDERS: ATTEND Nurse Practitioner Family | DX: M54.12 Radiculopathy, cervical region (principal) ==